=== PATIENT | male | born 1955 | race Caucasian/White ===

== ENCOUNTER 2019-07-18 22:31 | Emergency (ER) | payer SELFPAY ==
[~2019-07-18] VITALS: Ht 167.6 cm; Wt 74.3 kg
[2019-07-18 22:37] VITALS: Ht 167.6 cm; Wt 74.3 kg
[2019-07-19 01:45] VITALS: BP 135/82; PULSE 64; RESP 20
== END 2019-07-19 02:01 | disposition home or self-care (01) ==
LOC: E/R 22:31
DX: K62.5 Hemorrhage of anus and rectum (principal)
CPT/HCPCS: 80053; 85025; 85610; 85730; 99284